=== PATIENT | female | born 2000 | race American Indian/Alaskan Native ===

== ENCOUNTER 2021-12-04 16:26 | Emergency (ER) | payer OTHER ==
[2021-12-04 16:48] VITALS: BP 112/72
[2021-12-04 17:35] LABS: Bilirubin,Urine NEG (Negative); Blood,Urine NEG (Negative); Color,Urine Straw (Yellow); Mucus,Urine FEW /HPF; Protein,Urine <15 mg/dL mg/dL (Negative); Urobilinogen,Urine < 2.0 mg/dL (<2.0)
[2021-12-04 17:40] LABS: HCG Qualitative,Urine Positive (Negative)
== END 2021-12-05 14:50 | disposition left against medical advice (07) ==
LOC: ED 16:26
DX: R39.89 Other symptoms and signs involving the genitourinary system (principal); Z53.21 Procedure and treatment not carried out due to patient leaving prior to being seen by health care provider
CPT/HCPCS: 81001; 81025